=== PATIENT | female | born 1995 | race Caucasian/White ===

== ENCOUNTER 2017-03-01 08:10 | Emergency (ER) | payer OTHER ==
[2017-03-01 08:14] VITALS: BP 115/95; PULSE 98; RESP 17; TEMP 98.2; O2SAT 97
--- NOTE | 2017-03-01 08:36 | EDPHY ---
H & P Stated Complaint: st/fever Time Seen by Provider: 03/01/17 08:15 HPI/ROS: CHIEF COMPLAINT: Sore throat, subjective fever HISTORY OF PRESENT ILLNESS: The patient presents to the ED with a 1 day history of a sore throat subjective fever. The patient reports she noticed exudate on her tonsils earlier today. The patient denies any cough, vomiting, rash or additional complaints. The patient has no significant past medical history. The patient has had some mild left otalgia. REVIEW OF SYSTEMS: A comprehensive 10 point review of systems is otherwise negative aside from elements mentioned in the history of present illness. Source: Patient Exam Limitations: No limitations - Personal History LMP (Females 10-55): 22-28 Days Ago Current Tetanus/Diphtheria Vaccine: Yes - Medical/Surgical History Hx Asthma: No Hx Chronic Respiratory Disease: No Hx Diabetes: No Hx Cardiac Disease: No Hx Renal Disease: No Hx Cirrhosis: No Hx Alcoholism: No Hx HIV/AIDS: No Hx Splenectomy or Spleen Trauma: No Other PMH: add - Social History Smoking Status: Current some day smoker - Physical Exam Exam: General Appearance: Alert, no distress Eyes: Pupils equal and round no pallor or injection ENT, Mouth: Mucous membranes moist, tonsillar exudate noted bilaterally, no evidence of peritonsillar mass or swelling Respiratory: There are no retractions, lungs are clear to auscultation Cardiovascular: Regular rate and rhythm Skin: Warm and dry, no rashes Musculoskeletal: Neck is supple nontender Extremities: symmetrical, full range of motion Constitutional: Initial Vital Signs Temperature (C) 36.8 C 03/01/17 08:12 Heart Rate 98 03/01/17 08:12 Respiratory Rate 17 03/01/17 08:12 Blood Pressure 115/95 H 03/01/17 08:12 O2 Sat (%) 97 03/01/17 08:12 O2 Delivery Mode Room Air Allergies/Adverse Reactions: No Known Allergies Allergy (Unverified 03/01/17 08:11) Home Medications: Medication Instructions Recorded VYVDARRELLE 03/01/17 Viibryd 03/01/17 Medical Decision Making ED Course/Re-evaluation: The patient presents to the emergency department with symptoms consistent with strep pharyngitis with exudate and tonsillitis. She will be started on penicillin VK. She is given customary aftercare instructions. Differential Diagnosis: Differential diagnosis considered includes tonsillitis, peritonsillar abscess, retropharyngeal abscess - Data Points Laboratory Results: 03/01/17 08:20 Group A Strep Screen Pending Departure - Departure Disposition: Home, Routine, Self-Care Clinical Impression: Acute pharyngitis Condition: Good Instructions: Pharyngitis (ED) Additional Instructions: 1. Please take antibiotics as directed for next 7 days. 2. Please return to the ED for markedly worsening pain, swelling or other concerns. 3. Please follow up with your primary care provider as needed. Referrals: ESDRAS MCCULLOUGH [Other] - As per Instructions
== END 2017-03-01 08:45 | disposition home or self-care (01) ==
DX: J02.9 Acute pharyngitis, unspecified (principal); F17.200 Nicotine dependence, unspecified, uncomplicated